=== PATIENT | female | born 1985 | race Caucasian/White ===

== ENCOUNTER 2017-02-20 15:25 | Inpatient (IN) | payer OTHER ==
[2017-02-20] MEDS ORDERED: SODIUM CHLORIDE 0.9% 500 ML IV STA ×2 (15:49→19:25)
--- NOTE | 2017-02-20 15:58 | ED ---
General Adult HPI - General Source: RN notes reviewed <Brian Paz - Last Filed: 02/20/17 16:51> <Israel Pena - Last Filed: 02/20/17 19:24> - General Stated complaint: Alterd mental state Time Seen by Provider: 02/20/17 15:25 - History of Present Illness Initial comments: This is a 31-year-old female presents emergency department after having been dropped off at the front door she is severely altered mentally she is unable to give us any history but she is hyper active and uncooperative. Patient is unable to answer any questions at this time and she is wailing around in the room out of control. No other history is available no one came with her and again she is unable to give us any history (Brian Paz) - Related Data Home Medications Medication Instructions Recorded Confirmed No Known Home Medications [No 02/20/17 02/20/17 Known Home Medications] Allergies Allergy/AdvReac Type Severity Reaction Status Date / Time amoxicillin Allergy Unknown Verified 02/20/17 16:07 Review of Systems ROS Other: All systems not noted in ROS Statement are negative. <Brian Paz - Last Filed: 02/20/17 16:51> ROS Other: All systems not noted in ROS Statement are negative. <Israel Pena - Last Filed: 02/20/17 19:24> ROS Statement: Those systems with pertinent positive or pertinent negative responses have been documented in the HPI. Past Medical History Past Medical History: No Reported History History of Any Multi-Drug Resistant Organisms: None Reported Past Surgical History: Section Past Psychological History: Anxiety, Bipolar, Depression Smoking Status: Current every day smoker Past Alcohol Use History: None Reported Additional Past Alcohol Use History / Comment(s): Patient is a smoker of half a pack per day for 15 years. She states she uses and marijuana on a daily basis. She denies any alcohol use. She has been using heroin for the past 6 years at 3-4 packs per day. Past Drug Use History: Heroin, Marijuana - Past Family History Mother Additional Family Medical History / Comment(s): Mother is alive at age 49 with no major medical problems. Father Family Medical History: Coronary Artery Disease (CAD), CVA/TIA, Hypertension Additional Family Medical History / Comment(s): Father is alive at age 64 with history of coronary artery disease, hypertension, stroke, pacemaker insertion. Brother(s) Additional Family Medical History / Comment(s): She has 2 brothers and 1 sister that are healthy. Patient has had 5 children and one has . <Brian Paz - Last Filed: 02/20/17 16:51> General Exam <Brian Paz - Last Filed: 02/20/17 16:51> <Israel Pena - Last Filed: 02/20/17 19:24> - General Exam Comments Initial Comments: GENERAL: Patient is well-developed and well-nourished. Patient is nontoxic and well- hydrated and is in completely altered unable to answer any questions and just flailing in the bed.. ENT: Neck is soft and supple. No significant lymphadenopathy is noted. Oropharynx is clear. Moist mucous membranes. Neck has full range of motion without eliciting any pain. EYES: The sclera were anicteric and conjunctiva were pink and moist. Extraocular movements were intact and pupils were equal round and reactive to light. Eyelids were unremarkable. PULMONARY: Unlabored respirations. Good breath sounds bilaterally. No audible rales rhonchi or wheezing was noted. CARDIOVASCULAR: There is a regular rate and rhythm without any murmurs gallops or rubs. ABDOMEN: Soft and nontender with normal bowel sounds. SKIN: Skin is clear with no lesions or rashes and otherwise unremarkable. NEUROLOGIC: Patient is patient is awake and combative and flailing around in the bed. Cranial nerves II through XII are grossly intact. Patient is able to move all 4 extremities. MUSCULOSKELETAL: Normal extremities with adequate strength and full range of motion. No lower extremity swelling or edema. No calf tenderness. LYMPHATICS: No significant lymphadenopathy is noted PSYCHIATRIC: Unable to assess (Brian Paz) Procedures - Restraint - Face to Face Restraint Occurrence 1 Patient's Immediate Situation: Endangers self safety, Endangers others' safety, Endangers staff safety Patient's Reaction to the Intervention: Uncooperative, Belligerent, Aggressive, Combative Patient's Medical & Behavioral Condition: Confused, Agitated, Manic, Other (see comment) Need to Continue or Terminate Restraint or Seclusion: Continue Face to Face Eval of Restraint Date: 02/20/17 Face to Face Eval of Restraint Time: 15:35 <Brian Paz - Last Filed: 02/20/17 16:51> Medical Decision Making - Lab Data Result diagrams: 02/20/17 14:02 02/20/17 14:02 <Brian Paz - Last Filed: 02/20/17 16:51> - Lab Data Result diagrams: 02/20/17 14:02 02/20/17 14:02 <Israel Pena - Last Filed: 02/20/17 19:24> - Medical Decision Making After the patient come down a little bit she admitted to taking heroin Xanax marijuana and methamphetamines as well as alcohol. Patient did state at one time that she is suicidal Dr. Pena will be taking over the care of this patient at 5 PM (Brian Paz) The patient was seen and examined. She is still quite obtunded on recheck. She is still flailing around and did require 4-point restraints. She was evaluated [id number] proximal one hour after the restraints and still is flailing about and not following commands and restraints are continued. She did receive a total of 6 mg of Ativan with some improvement. The laboratory is essentially within normal limits but her drug screen is positive for 5 different substances. She does admit to intravenous heroin abuse as well. She did relate earlier to staff that she may be suicidal. However, it is not felt as though I can medically clear her at this point for psychiatric admission. The case is discussed with internal medicine and they're agreeable to admission. (Israel Pena) - Lab Data Lab Results 02/20/17 02/20/17 02/20/17 Range/Units 14:02 14:02 14:02 WBC 13.6 H (3.8-10.6) k/uL RBC 4.23 (3.80-5.40) m/uL Hgb 12.6 (11.4-16.0) gm/dL Hct 35.7 (34.0-46.0) % MCV 84.3 (80.0-100.0) fL MCH 29.7 (25.0-35.0) pg MCHC 35.3 (31.0-37.0) g/dL RDW 14.2 (11.5-15.5) % Plt Count 409 (150-450) k/uL Neutrophils % 35 % Lymphocytes % 58 % Monocytes % 3 % Eosinophils % 0 % Basophils % 1 % Neutrophils # 4.7 (1.3-7.7) k/uL Lymphocytes # 7.8 H (1.0-4.8) k/uL Monocytes # 0.4 (0-1.0) k/uL Eosinophils # 0.0 (0-0.7) k/uL Basophils # 0.1 (0-0.2) k/uL Manual Slide Review Performed Reactive Lymphocytes Present RBC Morphology Normal Sodium 143 (137-145) mmol/L Potassium 3.9 (3.5-5.1) mmol/L Chloride 103 (98-107) mmol/L Carbon Dioxide 18 L (22-30) mmol/L Anion Gap 22 mmol/L BUN 9 (7-17) mg/dL Creatinine 0.72 (0.52-1.04) mg/dL Est GFR (MDRD) Af Amer >60 (>60 ml/min/1.73 sqM) Est GFR (MDRD) Non-Af >60 (>60 ml/min/1.73 sqM) Glucose 102 H (74-99) mg/dL Calcium 9.8 (8.4-10.2) mg/dL Total Bilirubin 0.8 (0.2-1.3) mg/dL AST 49 H (14-36) U/L ALT 68 H (9-52) U/L Alkaline Phosphatase 70 (38-126) U/L Total Protein 8.0 (6.3-8.2) g/dL Albumin 4.7 (3.5-5.0) g/dL Urine HCG, Qual (Not Detectd) Salicylates <1.0 mg/dL Urine Opiates Screen Detected H (NotDetected) Ur Oxycodone Screen Not Detected (NotDetected) Urine Methadone Screen Not Detected (NotDetected) Ur Propoxyphene Screen Not Detected (NotDetected) Acetaminophen <10.0 ug/mL Ur Barbiturates Screen Not Detected (NotDetected) U Tricyclic Antidepress Not Detected (NotDetected) Ur Phencyclidine Scrn Not Detected (NotDetected) Ur Amphetamines Screen Detected H (NotDetected) U Methamphetamines Scrn Detected H (NotDetected) U Benzodiazepines Scrn Not Detected (NotDetected) Urine Cocaine Screen Detected H (NotDetected) U Marijuana (THC) Screen Detected H (NotDetected) Serum Alcohol <10 mg/dL 02/20/17 Range/Units 14:02 WBC (3.8-10.6) k/uL RBC (3.80-5.40) m/uL Hgb (11.4-16.0) gm/dL Hct (34.0-46.0) % MCV (80.0-100.0) fL MCH (25.0-35.0) pg MCHC (31.0-37.0) g/dL RDW (11.5-15.5) % Plt Count (150-450) k/uL Neutrophils % % Lymphocytes % % Monocytes % % Eosinophils % % Basophils % % Neutrophils # (1.3-7.7) k/uL Lymphocytes # (1.0-4.8) k/uL Monocytes # (0-1.0) k/uL Eosinophils # (0-0.7) k/uL Basophils # (0-0.2) k/uL Manual Slide Review Reactive Lymphocytes RBC Morphology Sodium (137-145) mmol/L Potassium (3.5-5.1) mmol/L Chloride (98-107) mmol/L Carbon Dioxide (22-30) mmol/L Anion Gap mmol/L BUN (7-17) mg/dL Creatinine (0.52-1.04) mg/dL Est GFR (MDRD) Af Amer (>60 ml/min/1.73 sqM) Est GFR (MDRD) Non-Af (>60 ml/min/1.73 sqM) Glucose (74-99) mg/dL Calcium (8.4-10.2) mg/dL Total Bilirubin (0.2-1.3) mg/dL AST (14-36) U/L ALT (9-52) U/L Alkaline Phosphatase (38-126) U/L Total Protein (6.3-8.2) g/dL Albumin (3.5-5.0) g/dL Urine HCG, Qual Not Detected (Not Detectd) Salicylates mg/dL Urine Opiates Screen (NotDetected) Ur Oxycodone Screen (NotDetected) Urine Methadone Screen (NotDetected) Ur Propoxyphene Screen (NotDetected) Acetaminophen ug/mL Ur Barbiturates Screen (NotDetected) U Tricyclic Antidepress (NotDetected) Ur Phencyclidine Scrn (NotDetected) Ur Amphetamines Screen (NotDetected) U Methamphetamines Scrn (NotDetected) U Benzodiazepines Scrn (NotDetected) Urine Cocaine Screen (NotDetected) U Marijuana (THC) Screen (NotDetected) Serum Alcohol mg/dL Disposition <Brian Paz - Last Filed: 02/20/17 16:51> Time of Disposition: 19:23 Decision Date: 02/20/17 Decision Time: 19:24 <Israel Pena - Last Filed: 02/20/17 19:24> Clinical Impression: Polysubstance overdose, Mental status change, Suicidal ideation, Sinus tachycardia Disposition: ADMITTED IP TO THIS [facility] Condition: Fair
[2017-02-20] MEDS: LORazepam 2 MG/ML SYRINGE IV STA ×2 (16:07→16:20)
[2017-02-20 16:27] LABS: ALT 68 U/L (9-52); AST 49 U/L (14-36); Acetaminophen <10.0 ug/mL; Alcohol <10 mg/dL; Alkaline Phosphatase 70 U/L (38-126); Anion Gap 22 mmol/L; Blood Urea Nitrogen 9 mg/dL (7-17); Calcium 9.8 mg/dL (8.4-10.2); Carbon Dioxide 18 mmol/L (22-30); Chloride 103 mmol/L (98-107); Glucose 102 mg/dL (74-99); Non-African American GFR(MDRD) >60 (>60 ml/min/1.73 sqM); Potassium 3.9 mmol/L (3.5-5.1); Salicylate <1.0 mg/dL; Sodium 143 mmol/L (137-145); Total Bilirubin 0.8 mg/dL (0.2-1.3)
[2017-02-20 16:29] LABS: Basophils # (A) 0.1 k/uL (0-0.2); Basophils % (A) 1 %; CH 28.7; CHCM 34.3; Eosinophils % (A) 0 %; HCT 35.7 % (34.0-46.0); HDW 2.57; HGB 12.6 gm/dL (11.4-16.0); Luc # (Auto) 0.53; Luc % (Auto) 4; Lymphocytes # (A) 7.8 k/uL (1.0-4.8); Lymphocytes % (A) 58 %; MCH 29.7 pg (25.0-35.0); MCHC 35.3 g/dL (31.0-37.0); MCV 84.3 fL (80.0-100.0); Mean Platelet Volume 7.2; Monocytes # (A) 0.4 k/uL (0-1.0); Monocytes % (A) 3 %; Neutrophils # (A) 4.7 k/uL (1.3-7.7); Neutrophils % (A) 35 %; RBC 4.23 m/uL (3.80-5.40); RDW 14.2 % (11.5-15.5); WBC 13.6 k/uL (3.8-10.6); WBC (Perox) 12.79
[2017-02-20 16:54] LABS: Manual Review Performed; RBC Morphology Normal; Reactive Lymphocytes Present
[2017-02-20] MEDS ORDERED: LORazepam 2 MG/ML SYRINGE IV STA (18:21)
[2017-02-20] MEDS ORDERED: NALOXONE 0.4 MG/ML 1 ML VIAL IV PRN (19:25)
[2017-02-20] MEDS ORDERED: ACETAMINOPHEN TAB 325 MG TAB PO PRN (19:25)
[2017-02-20] MEDS ORDERED: SODIUM CHLORIDE 0.9% 1,000 ML IV STA (19:25)
[2017-02-20] MEDS ORDERED: ONDANSETRON 4 MG/2 ML VIAL IVP PRN (19:25)
[2017-02-20] MEDS ORDERED: LORazepam 2 MG/ML SYRINGE IV PRN (19:29)
[2017-02-20] MEDS ORDERED: HALOPERIDOL LACTATE 5 MG/ML 1 ML VIAL IVP PRN (19:56)
[2017-02-20 21:26] LABS: Acetaminophen <10.0 ug/mL; Salicylate <1.0 mg/dL
[2017-02-21] MEDS ORDERED: HALOPERIDOL LACTATE 5 MG/ML 1 ML VIAL IM PRN (00:11)
[2017-02-21] MEDS ORDERED: LORazepam 2 MG/ML SYRINGE IV PRN (00:11)
[2017-02-21] MEDS: PANTOPRAZOLE 40 MG/10 ML VIAL IV SCH (08:23)
[2017-02-21] MEDS: NICOTINE 14MG/24HR PATCH TRANSDERM SCH (08:23)
[2017-02-21] MEDS: cloNIDine HCL 0.1 MG TAB PO SCH (08:23)
[2017-02-21] MEDS: ENOXAPARIN 40 MG/0.4 ML SYRINGE SQ SCH (08:23)
[2017-02-21 12:33] LABS: Basophils # (A) 0.1 k/uL (0-0.2); Basophils % (A) 1 %; CH 28.5; CHCM 33.6; Eosinophils # (A) 0.1 k/uL (0-0.7); Eosinophils % (A) 1 %; HCT 34.9 % (34.0-46.0); HDW 2.52; HGB 12.4 gm/dL (11.4-16.0); Luc # (Auto) 0.12; Luc % (Auto) 1; Lymphocytes # (A) 2.4 k/uL (1.0-4.8); Lymphocytes % (A) 30 %; MCH 30.2 pg (25.0-35.0); MCHC 35.5 g/dL (31.0-37.0); MCV 85.1 fL (80.0-100.0); Mean Platelet Volume 6.8; Monocytes # (A) 0.2 k/uL (0-1.0); Monocytes % (A) 2 %; Neutrophils # (A) 5.2 k/uL (1.3-7.7); Neutrophils % (A) 65 %; RDW 14.2 % (11.5-15.5); WBC (Perox) 7.97
[2017-02-21 12:45] LABS: ALT 73 U/L (9-52); AST 67 U/L (14-36); Alkaline Phosphatase 55 U/L (38-126); Anion Gap 10 mmol/L; Blood Urea Nitrogen 13 mg/dL (7-17); Calcium 8.8 mg/dL (8.4-10.2); Carbon Dioxide 26 mmol/L (22-30); Chloride 107 mmol/L (98-107); Glucose 103 mg/dL (74-99); Non-African American GFR(MDRD) >60 (>60 ml/min/1.73 sqM); Potassium 3.9 mmol/L (3.5-5.1); Sodium 143 mmol/L (137-145); Total Bilirubin 0.8 mg/dL (0.2-1.3); Total Protein 6.8 g/dL (6.3-8.2)
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
[2017-02-22] MEDS: cloNIDine HCL 0.1 MG TAB PO SCH ×2 (00:34→09:31)
[2017-02-22 03:50] LABS: Basophils # (A) 0.1 k/uL (0-0.2); Basophils % (A) 1 %; CH 28.7; CHCM 33.9; Eosinophils # (A) 0.1 k/uL (0-0.7); Eosinophils % (A) 2 %; HCT 35.1 % (34.0-46.0); HDW 2.47; HGB 12.1 gm/dL (11.4-16.0); Luc # (Auto) 0.11; Luc % (Auto) 2; Lymphocytes # (A) 2.5 k/uL (1.0-4.8); Lymphocytes % (A) 40 %; MCH 29.4 pg (25.0-35.0); MCHC 34.6 g/dL (31.0-37.0); MCV 85.1 fL (80.0-100.0); Mean Platelet Volume 6.8; Monocytes # (A) 0.2 k/uL (0-1.0); Monocytes % (A) 3 %; Neutrophils # (A) 3.4 k/uL (1.3-7.7); Neutrophils % (A) 53 %; RBC 4.12 m/uL (3.80-5.40); RDW 14.3 % (11.5-15.5); WBC 6.4 k/uL (3.8-10.6); WBC (Perox) 6.28
[2017-02-22 04:13] LABS: ALT 76 U/L (9-52); AST 55 U/L (14-36); Alkaline Phosphatase 52 U/L (38-126); Anion Gap 9 mmol/L; Blood Urea Nitrogen 12 mg/dL (7-17); Calcium 8.7 mg/dL (8.4-10.2); Carbon Dioxide 24 mmol/L (22-30); Chloride 108 mmol/L (98-107); Glucose 87 mg/dL (74-99); Non-African American GFR(MDRD) >60 (>60 ml/min/1.73 sqM); Potassium 3.7 mmol/L (3.5-5.1); Sodium 141 mmol/L (137-145); Total Bilirubin 0.5 mg/dL (0.2-1.3); Total Protein 6.3 g/dL (6.3-8.2)
[2017-02-22 07:18] VITALS: BP 115/62; PULSE 69; RESP 14; TEMP 96.6
[2017-02-22] MEDS: ENOXAPARIN 40 MG/0.4 ML SYRINGE SQ SCH (09:31)
[2017-02-22] MEDS: PANTOPRAZOLE 40 MG/10 ML VIAL IV SCH (09:31)
[2017-02-22] MEDS: NICOTINE 14MG/24HR PATCH TRANSDERM SCH (09:34)
--- NOTE | 2017-02-22 18:15 | HP ---
HISTORY AND PHYSICAL CHIEF COMPLAINT: Change in mental status. HISTORY OF PRESENT ILLNESS: This 31-year-old woman with a past medical history of multiple medical problems, including polysubstance abuse, has significant social stressors at home, per staff. The patient apparently was dropped off at the ER and the patient was found to be combative and restless. The patient had multiple toxins showed in the toxicology scan, including opiates, amphetamines, methamphetamines, cocaine and marijuana. The patient is being closely monitored. Currently the patient is restless, confused, disoriented; unable to give a coherent history. Most of the history is taken from my discussion with staff and review of the chart at this time. PAST MEDICAL HISTORY: 1. History of polysubstance abuse. 2. History of anxiety, bipolar, depression. 3. History of nicotine dependence. HOME MEDICATIONS: Unknown. ALLERGIES: AMOXICILLIN. Family history, social history, review of systems could be not taken because of the change in mental status. PHYSICAL EXAM: The patient is disoriented, restless. Pulse is 98, blood pressure 134/76, respiration 16, temperature 99.2, pulse ox 97% on room air. HEENT: Conjunctivae normal. Oral mucosa moist. NECK: No jugular venous distention. No carotid bruit. No lymph node enlargement. CARDIOVASCULAR: S1, S2 muffled. No S3. No S4. RESPIRATORY: Breath sounds diminished at the bases. Some scattered rhonchi. No crackles. ABDOMEN: Soft, non-tender. No mass palpable. LEGS: No edema. No swelling. NERVOUS SYSTEM: Diffusely weak. LAB INVESTIGATIONS AT THIS TIME: WBC 13.6. Other labs are noted. AST 49, ALT 68. ASSESSMENT: 1. Change in mental status with acute metabolic encephalopathy with polysubstance abuse. 2. Positive cocaine, THC. 3. Increased AST, ALT with hepatitis. 4. Increased white count. 5. History of anxiety, bipolar, depression. 6. History of nicotine dependence. RECOMMENDATIONS AND DISCUSSION: In this 31-year-old woman who presented with multiple complex medical issues, we will monitor the patient closely, continue the current medications, continue with symptomatic treatment. Psychiatric consultation. Also recommend substance abuse counseling. Prognosis guarded. Further recommendations to follow. Possible inpatient psychiatric evaluation. Discussed with staff at length. WHITNEY
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
== END 2017-02-22 10:56 | disposition left against medical advice (07) | DRG 917 ==
LOC: EC 15:25 → 6SEL 19:25 → 4MS4W 02-22 06:27
PROVIDERS: ADMIT Hospitalist; ATTEND Hospitalist
DX: T50.901A Poisoning by unspecified drugs, medicaments and biological substances, accidental (unintentional), initial encounter (principal); G93.41 Metabolic encephalopathy; R45.851 Suicidal ideations; B17.9 Acute viral hepatitis, unspecified; F32.9 Major depressive disorder, single episode, unspecified; F11.10 Opioid abuse, uncomplicated; F17.200 Nicotine dependence, unspecified, uncomplicated; F41.9 Anxiety disorder, unspecified; D72.829 Elevated white blood cell count, unspecified; F14.10 Cocaine abuse, uncomplicated; F12.10 Cannabis abuse, uncomplicated; Z88.0 Allergy status to penicillin; Z82.49 Family history of ischemic heart disease and other diseases of the circulatory system
CPT/HCPCS: 36415; 80053; 80306; 80320; 81025; 82075; 83520; 85025

== ENCOUNTER → 2017-11-24 | Outpatient (CLI) | payer OTHER ==
--- NOTE | 2017-11-24 12:29 | EST ---
EXERCISE STRESS AGE: 32 SEX: F HT: 5'4" WT: 117 PROTOCOL: Rachid Stress Test STAGE: IV DURATION OF EXERCISE: 12:30 HEART RATE REST: 80 BLOOD PRESSURE REST: 102/76 MAXIMUM HEART RATE ACHIEVED: 167 MAXIMUM BLOOD PRESSURE: 146/82 85% MPHR: 161 100% MPHR: 189 METS: 12.9 INDICATIONS: Chest pain. CLINICAL INFORMATION: This is a stress test for evaluation of chest pain. Baseline heart rate 80 beats per minute. Baseline blood pressure 102/76 mmHg. Baseline 12-lead ECG shows normal sinus rhythm with normal ST segments, tall P waves in the inferior leads consistent with possible right atrial enlargement. The patient exercised on Rachid protocol for 12 minutes 30 seconds. She complained of chest pain during the stress test. Peak heart rate 167 beats per minute. Normal blood pressure response to exercise. There was no ECG evidence for ischemia. No exercise- induced arrhythmias noted. IMPRESSION: 1. Good exercise capacity. 2. No ECG evidence for ischemia or arrhythmia noted. MMODL / IJN: [id number] /
== END | disposition home or self-care (01) ==
LOC: RADNMMAIN 10:56
PROVIDERS: ATTEND Internal Medicine
DX: R07.9 Chest pain, unspecified (principal)
CPT/HCPCS: 93017

== ENCOUNTER → 2018-05-02 | Outpatient (CLI) | payer OTHER ==
[2018-05-02 09:10] LABS: Basophils # (A) 0.1 k/uL (0-0.2); Basophils % (A) 1 %; Eosinophils # (A) 0.1 k/uL (0-0.7); Eosinophils % (A) 1 %; HCT 42.6 % (34.0-46.0); HGB 13.5 gm/dL (11.4-16.0); INR 1.1 (<1.2); Lymphocytes # (A) 2.9 k/uL (1.0-4.8); Lymphocytes % (A) 29 %; MCH 29.4 pg (25.0-35.0); MCHC 31.6 g/dL (31.0-37.0); MCV 92.9 fL (80.0-100.0); Mean Platelet Volume 7.1; Monocytes # (A) 0.4 k/uL (0-1.0); Monocytes % (A) 4 %; Neutrophils # (A) 6.4 k/uL (1.3-7.7); Neutrophils % (A) 64 %; Platelet Count 277 k/uL (150-450); Prothrombin Time 10.3 sec (9.0-12.0); RBC 4.59 m/uL (3.80-5.40); RDW 13.2 % (11.5-15.5)
[2018-05-02 09:42] LABS: Albumin 4.4 g/dL (3.5-5.0); Bilirubin, Delta 0.2 mg/dL (0.0-0.2); Total Bilirubin 0.2 mg/dL (0.2-1.3); Total Protein 7.4 g/dL (6.3-8.2)
--- NOTE | 2018-05-02 10:17 | US ---
EXAMINATION TYPE: US liver DATE OF EXAM: 05/02/2018 COMPARISON: NONE CLINICAL HISTORY: 32-year-old female Vir Hep C B19.20. Asymptomatic. TECHNIQUE: Multiple sonographic images of the right upper quadrant are obtained. FINDINGS: EXAM MEASUREMENTS: Liver Length: 14.0 cm Gallbladder Wall: 0.1 cm CBD: 5.8 mm Right Kidney: 11.4 x 6.1 x 4.6 cm Pancreas: wnl Liver: Slightly heterogeneous echotexture. No focal lesion seen. Gallbladder: wnl Evidence for sonographic Levi's sign: no CBD: Upper limits of normal in caliber Right Kidney: No hydronephrosis IMPRESSION: 1. Slight heterogeneous echotexture of the liver suggests nonspecific hepatocellular disease. No sono graphic evidence for hepatoma. 2. Bile duct caliber is upper limits of normal at 5.8 mm. This can be correlated with alkaline phosph atase and bilirubin levels. 3. The gallbladder appears normal.
[2018-05-04 13:31] LABS: HCV Quant Log 4.58 (<1.08)
== END | disposition home or self-care (01) ==
LOC: RADUSWWP 08:13
PROVIDERS: ATTEND Internal Medicine Gastroenterology
DX: B19.20 Unspecified viral hepatitis C without hepatic coma (principal)
CPT/HCPCS: 36415; 76705; 80076; 85025; 85610; 87522

== ENCOUNTER → 2018-07-26 | Outpatient (CLI) | payer OTHER ==
[2018-07-26 13:51] LABS: Basophils # (A) 0.1 k/uL (0-0.2); Basophils % (A) 1 %; Eosinophils # (A) 0.1 k/uL (0-0.7); Eosinophils % (A) 1 %; HCT 38.2 % (34.0-46.0); HGB 12.5 gm/dL (11.4-16.0); Lymphocytes # (A) 2.8 k/uL (1.0-4.8); Lymphocytes % (A) 34 %; MCH 29.6 pg (25.0-35.0); MCHC 32.8 g/dL (31.0-37.0); MCV 90.2 fL (80.0-100.0); Mean Platelet Volume 7.1; Monocytes # (A) 0.4 k/uL (0-1.0); Monocytes % (A) 4 %; Neutrophils # (A) 4.8 k/uL (1.3-7.7); Neutrophils % (A) 59 %; Platelet Count 288 k/uL (150-450); RBC 4.23 m/uL (3.80-5.40); RDW 13.4 % (11.5-15.5); WBC 8.1 k/uL (3.8-10.6)
[2018-07-26 20:24] LABS: Albumin 4.9 g/dL (3.80-4.90); Albumin/Globulin Ratio 2.23 (1.20-2.10); Bilirubin, Conjugated 0.2 mg/dL (0.20-0.40); Bilirubin,Unconjugated 0.3 mg/dL; Globulin 2.2 g/dL (2.1-3.7); Total Bilirubin 0.5 mg/dL (0.2-1.2); Total Protein 7.1 g/dL (6.2-8.2)
[2018-07-27 16:13] LABS: Hepatits C Virus RNA Not detected (Not detected); Hepatits C Virus RNA, Quant <12 IU/mL (<12); LOG HCV IU/mL <1.08 (<1.08)
== END ==
LOC: LABWHC1 13:07
PROVIDERS: ATTEND Physician Assistant
DX: B19.20 Unspecified viral hepatitis C without hepatic coma (principal)
CPT/HCPCS: 36415; 80076; 85025; 87522

== ENCOUNTER → 2018-12-14 | Outpatient (CLI) | payer OTHER ==
[2018-12-14 14:41] LABS: Basophils # (A) 0.1 k/uL (0-0.2); Basophils % (A) 1 %; Eosinophils # (A) 0.1 k/uL (0-0.7); Eosinophils % (A) 1 %; HCT 40.4 % (34.0-46.0); HGB 13.3 gm/dL (11.4-16.0); Lymphocytes % (A) 30 %; MCH 29.5 pg (25.0-35.0); MCHC 32.9 g/dL (31.0-37.0); MCV 89.8 fL (80.0-100.0); Mean Platelet Volume 7.4; Monocytes # (A) 0.3 k/uL (0-1.0); Monocytes % (A) 4 %; Neutrophils # (A) 4.3 k/uL (1.3-7.7); Neutrophils % (A) 63 %; Platelet Count 313 k/uL (150-450); RDW 13.6 % (11.5-15.5); WBC 6.8 k/uL (3.8-10.6)
[2018-12-14 18:42] LABS: ALT 74 U/L (8-44); AST 48 U/L (13-35); Albumin/Globulin Ratio 2.14 (1.60-3.17); Alkaline Phosphatase 71 U/L (41-126); Bilirubin, Conjugated <0.20 mg/dL (0.20-0.40); Globulin 2.2 g/dL (1.6-3.3); Total Bilirubin 0.2 mg/dL (0.2-1.2); Total Protein 6.9 g/dL (6.2-8.2)
[2018-12-17 15:50] LABS: Hepatits C Virus RNA DETECTED (Not detected)
== END | disposition home or self-care (01) ==
LOC: LABWHC1 13:56
PROVIDERS: ATTEND Physician Assistant
DX: B19.20 Unspecified viral hepatitis C without hepatic coma (principal)
CPT/HCPCS: 36415; 80076; 85025; 87522

== ENCOUNTER → 2019-03-09 | Outpatient (CLI) | payer OTHER ==
[2019-03-09 09:43] LABS: Basophils # (A) 0.1 k/uL (0-0.2); Basophils % (A) 1 %; Eosinophils # (A) 0.1 k/uL (0-0.7); Eosinophils % (A) 1 %; HCT 39.3 % (34.0-46.0); HGB 12.8 gm/dL (11.4-16.0); Lymphocytes # (A) 2.9 k/uL (1.0-4.8); Lymphocytes % (A) 33 %; MCHC 32.5 g/dL (31.0-37.0); MCV 89.2 fL (80.0-100.0); Monocytes # (A) 0.3 k/uL (0-1.0); Monocytes % (A) 3 %; Neutrophils # (A) 5.3 k/uL (1.3-7.7); Neutrophils % (A) 60 %; Platelet Count 331 k/uL (150-450); RBC 4.41 m/uL (3.80-5.40); RDW 13.5 % (11.5-15.5); WBC 8.8 k/uL (3.8-10.6)
[2019-03-09 19:13] LABS: Albumin 4.8 g/dL (3.80-4.90); Albumin/Globulin Ratio 2.09 (1.60-3.17); Bilirubin, Conjugated 0.2 mg/dL (0.20-0.40); Bilirubin,Unconjugated 0.3 mg/dL; Globulin 2.3 g/dL (1.6-3.3); Total Bilirubin 0.5 mg/dL (0.3-1.2); Total Protein 7.1 g/dL (6.2-8.2)
== END | disposition home or self-care (01) ==
LOC: LABWHC1 09:20
PROVIDERS: ATTEND Physician Assistant
DX: B19.20 Unspecified viral hepatitis C without hepatic coma (principal)
CPT/HCPCS: 36415; 80076; 85025; 87522

== ENCOUNTER → 2019-05-14 | Outpatient (CLI) | payer OTHER ==
[2019-05-14 13:03] LABS: Prothrombin Time 10.6 sec (9.0-12.0)
[2019-05-14 13:09] LABS: Basophils # (A) 0.1 k/uL (0-0.2); Basophils % (A) 1 %; Eosinophils # (A) 0.1 k/uL (0-0.7); Eosinophils % (A) 1 %; HCT 38.1 % (34.0-46.0); HGB 12.8 gm/dL (11.4-16.0); Lymphocytes # (A) 2.8 k/uL (1.0-4.8); Lymphocytes % (A) 29 %; MCH 29.8 pg (25.0-35.0); MCHC 33.6 g/dL (31.0-37.0); MCV 88.8 fL (80.0-100.0); Monocytes # (A) 0.4 k/uL (0-1.0); Monocytes % (A) 4 %; Neutrophils # (A) 6.1 k/uL (1.3-7.7); Neutrophils % (A) 63 %; Platelet Count 306 k/uL (150-450); RDW 12.9 % (11.5-15.5); WBC 9.6 k/uL (3.8-10.6)
[2019-05-14 19:40] LABS: Albumin 4.8 g/dL (3.80-4.90); Albumin/Globulin Ratio 2.18 (1.60-3.17); Bilirubin, Conjugated 0.2 mg/dL (0.20-0.40); Bilirubin,Unconjugated 0.3 mg/dL; Globulin 2.2 g/dL (1.6-3.3); Total Bilirubin 0.5 mg/dL (0.2-1.2)
[2019-05-15 10:42] LABS: Serum Amphetamine Negative; Serum Barbiturates Negative; Serum Benzodiazepine Negative; Serum Cocaine Negative; Serum Methadone Negative; Serum Opiates Negative; Serum Phencyclidine Negative; Serum Propoxyphene Negative; Serum THC (Cannabis) Positive
== END | disposition home or self-care (01) ==
LOC: LABWHC1 12:12
PROVIDERS: ATTEND Physician Assistant
DX: B18.2 Chronic viral hepatitis C (principal)
CPT/HCPCS: 36415; 80076; 80307; 85025; 85610; 87522

== ENCOUNTER → 2019-10-01 | Outpatient (CLI) | payer OTHER ==
[2019-10-01 16:58] LABS: Basophils # (A) 0.1 k/uL (0-0.2); Basophils % (A) 1 %; Eosinophils # (A) 0.2 k/uL (0-0.7); Eosinophils % (A) 3 %; HCT 41.6 % (34.0-46.0); HGB 13.5 gm/dL (11.4-16.0); Lymphocytes # (A) 2.5 k/uL (1.0-4.8); Lymphocytes % (A) 39 %; MCH 29.5 pg (25.0-35.0); MCHC 32.4 g/dL (31.0-37.0); MCV 91.3 fL (80.0-100.0); Monocytes # (A) 0.4 k/uL (0-1.0); Monocytes % (A) 6 %; Neutrophils # (A) 3.2 k/uL (1.3-7.7); Neutrophils % (A) 50 %; Platelet Count 302 k/uL (150-450); RBC 4.56 m/uL (3.80-5.40); RDW 12.4 % (11.5-15.5); WBC 6.5 k/uL (3.8-10.6)
== END | disposition home or self-care (01) ==
LOC: LABWHC1 16:16
PROVIDERS: ATTEND Physician Assistant
DX: B18.2 Chronic viral hepatitis C (principal)
CPT/HCPCS: 36415; 85025; 87522

== ENCOUNTER 2025-02-03 11:27 | Emergency (ER) | payer OTHER ==
[2025-02-03 11:31] VITALS: RESP 18
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
[2025-02-03] MEDS: KETOROLAC 15 MG/ML 1 ML VIAL IM STA (12:09)
[2025-02-03] MEDS: ACETAMINOPHEN TAB 325 MG TAB PO STA (12:10)
--- NOTE | 2025-02-03 12:41 | XR ---
EXAMINATION TYPE: XR foot complete LT, XR ankle complete LT DATE OF EXAM: 02/03/2025 12:23 PM COMPARISON: None CLINICAL INDICATION: Female, 39 years old with history of Lateral foot and ankle TTP, pain TECHNIQUE: XR foot complete LT, XR ankle complete LT examined in the AP, oblique, and lateral project ions. FINDINGS: There is acute fracture through the distal fibula without significant displacement. Associated soft t issue swelling. The remainder of the osseous structures appear intact. IMPRESSION: There is acute fracture through the distal fibula without significant displacement. Associated soft t issue swelling.. [facility], , 02/03/2025 12:39 PM
[2025-02-03 12:57] VITALS: BP 128/80; PULSE 82; TEMP 98
== END 2025-02-03 12:55 | disposition home or self-care (01) ==
LOC: EC 11:27
DX: S82.402A Unspecified fracture of shaft of left fibula, initial encounter for closed fracture (principal); Z88.0 Allergy status to penicillin; W17.2XXA Fall into hole, initial encounter
CPT/HCPCS: 73610; 73630; 99283; 96372; J1885